=== PATIENT | female | born 1945 | race Caucasian/White ===

== ENCOUNTER 2016-09-18 17:05 | Emergency (ER) | payer OTHER ==
--- NOTE | ~2016-09-18 | US85 ---
[facility] A Service of [facility] RADIOLOGY TEXT RESULTS PATIENT: ERIK MAX LOCATION: [place] : 43 UNIT #: [id number] AGE: [address]: Pelon Hawk MD SEX: F ORDER DR: [id number] [facility] [address] [place], [place] [address] [id number] MR#: [id number] Acc #: [id number] NAME: ERIK MAX : 1945 SEX: F STUDY DATE/TIME: 09/18/2016 15:51 UNIT: [place] [facility] ROOM: STUDY DESCRIPTION: [facility] Attending Physician: Pelon Hawk M.D. Ordering Physician: Allen Car M.D. Primary Care Physician: Farnaz Coe A.P.R.N. MEDICAL IMAGING REPORT This report is preliminary unless electronic signature is present EXAM Right lower extremity venous ultrasound. DATE OF EXAM 09/18/2016 HISTORY Right lower extremity pain for 3 days. TECHNIQUE Venous ultrasound examination of the right lower extremity was performed using grayscale, spectral Doppler and color flow Doppler imaging. FINDINGS The examination is negative. There is no evidence of right lower extremity deep venous thrombus from the groin to the lower calf. Visualized greater saphenous vein is also patent. IMPRESSION Negative examination. No evidence of right lower extremity DVT. Dictated by... Rafael Sam M.D. THIS IS AN ELECTRONICALLY VERIFIED REPORT Rafael Sam M.D. at 09/18/2016 11:23 PM RAMON/berenice TD: 09/18/2016 18:11 JOB #: [id number] [facility] A Service of [facility] RADIOLOGY TEXT RESULTS PATIENT: ERIK MAX LOCATION: [place] : 43 UNIT #: [id number] AGE: [address]: Pelon Hawk MD SEX: F ORDER DR: MEDICAL IMAGING REPORT Page 1 of 1 COPY
[2016-09-18 16:12] LABS: BASOPHIL% 0.6 % (0-2.5); EOSINOPHIL# 0.2 X10e3 (0-0.7); EOSINOPHIL% 2.3 % (0.0-7.0); HEMATOCRIT 39.8 % (35.0-45.0); HEMOGLOBIN 13.1 gm/dL (12.0-16.0); LYMPHOCYTE# 1.6 X10e3 (1.0-3.5); LYMPHOCYTE% 20.6 % (17.0-45.0); MEAN CELL VOLUME 92.9 FL (83-96); MEAN CORPUSCULAR HEMOGLOBIN 30.6 PG (28-34); MEAN CORPUSCULAR HGB CONC 32.9 g/dL (30-36); MEAN PLATELET VOLUME 8.5 FL (6.5-11.5); MONOCYTE# 0.7 X10e3 (0-1.0); MONOCYTE% 8.7 % (3.0-12.0); NEUTROPHIL# 5.1 X10e3 (1.5-7.1); NEUTROPHIL% 67.8 % (40-75); PLATELET COUNT 216 X10e3 (140-420); RED BLOOD COUNT 4.28 X10e (3.90-5.30); RED CELL DISTRIBUTION WIDTH 13.6 % (11.0-15.5); WHITE BLOOD COUNT 7.5 X10e3 (4.0-10.5)
[2016-09-18 16:16] LABS: DIFF IND NO
[2016-09-18 16:19] LABS: INR 1.1; PARTIAL THROMBOPLASTIN TIME 24.4 SECONDS (23.5-31.3); PROTHROMBIN TIME (PATIENT) 11.5 SECONDS (9.6-11.5)
[2016-09-18 16:23] LABS: BUN/CREATININE RATIO 15.38; CALCIUM SERUM 9.2 mg/dL (8.4-10.2); CREATININE SERUM 1.3 mg/dL (0.6-1.4); POTASSIUM 3.3 mmol/L (3.5-5.1)
[~2016-09-18 17:05] MED LIST: ALBUTEROL MININEB NEB; ALBUTEROL17 GM INH; ASPIRIN PO; IMURAN50 MG PO; LEVAQUIN PO; LISINOPRIL PO; LORTAB 7.5-5001 TAB PO; MEDROL PO; SYNTHROID PO
== END 2016-09-18 17:45 | disposition home or self-care (01) ==
LOC: CED 17:05
PROVIDERS: Emergency Medicine
DX: M79.651 Pain in right thigh (principal); Z86.718 Personal history of other venous thrombosis and embolism; Z88.0 Allergy status to penicillin; Z88.2 Allergy status to sulfonamides
CPT/HCPCS: 36415; 80048; 85025; 85610; 85730; 93971; 99284